=== PATIENT | female | born 1935 | race Caucasian/White ===

== ENCOUNTER → 2020-02-12 18:48 | Outpatient (CLI) | payer MEDICARE, BC, SELFPAY ==
[2020-02-12 19:39] LABS: Alanine Aminotransferase 21 U/L (12-78); Albumin Level 4.8 g/dl (3.5-5.0); Albumin/Globulin Ratio 1.5 (1.1-1.8); Alkaline Phosphatase 87 U/L (38-126); Anion Gap 13.1 mEq/L (5-15); Aspartate Amino Transferase 42 U/L (14-36); Bilirubin,Total 0.6 mg/dl (0.2-1.3); Blood Urea Nitrogen 23 mg/dl (7-17); Calcium 10.3 mg/dl (8.4-10.2); Carbon Dioxide 31 mmol/L (22.0-30.0); Chloride 101 mmol/L (98-107); Estimated Glomerular Filt Rate 47 ml/min (>60); GFR (African American) 57 ML/MIN (>60); Globulin 3.3 g/dL (1.3-3.2); Glucose 115 mg/dl (74-100); Potassium 4.1 mmoL/L (3.5-5.1); Sodium 141 mmol/L (136-145); Total Protein,Serum 8.1 g/dl (6.3-8.2)
[2020-02-12 20:05] LABS: Thyroid Stimulating Hormone 1.13 uIU/mL (0.465-4.68)
== END ==
PROVIDERS: Visit Provider Family Medicine
DX: E03.9 Hypothyroidism, unspecified (principal); I10 Essential (primary) hypertension
CPT/HCPCS: 80053; 84443

== ENCOUNTER → 2021-01-17 18:27 | Outpatient (CLI) | payer MEDICARE, BC, SELFPAY ==
[2021-01-17 18:58] LABS: Basophils % 0.6 % (0.1-2.0); Eosinophils # 0.1 K/mm3 (0.0-0.4); Eosinophils % 0.8 % (0.1-12.0); Hematocrit 43.6 % (37.0-47.0); Hemoglobin 14.3 g/dL (12.2-16.2); Lymphocytes # 2.6 K/mm3 (0.7-4.5); Lymphocytes % 37.7 % (10-50); Mean Corpuscular HGB Conc 32.8 g/dL (31.8-35.4); Mean Corpuscular Hemoglobin 30.2 pg (27.0-31.2); Mean Corpuscular Volume 92.1 fl (81-99); Mean Platelet Volume 9.6 fl (7.4-10.4); Monocytes # 0.6 K/mm3 (0.1-1.0); Monocytes % 8.2 % (1.7-9.3); Neutrophils # 3.7 K/mm3 (1.8-7.8); Neutrophils % 52.7 % (37.0-80.0); Platelet Count 302 K/mm3 (142-424); Red Blood Count 4.74 M/mm3 (4.20-5.40); Red Cell Distribution Width 13.9 % (11.5-17.5)
[2021-01-17 19:46] LABS: Alanine Aminotransferase 18 U/L (12-78); Albumin Level 4.4 g/dl (3.5-5.0); Albumin/Globulin Ratio 1.4 (1.1-1.8); Alkaline Phosphatase 69 U/L (38-126); Anion Gap 15.1 mEq/L (5-15); Aspartate Amino Transferase 36 U/L (14-36); Bilirubin,Total 0.3 mg/dl (0.2-1.3); Blood Urea Nitrogen 22 mg/dl (7-17); Calcium 9.7 mg/dl (8.4-10.2); Carbon Dioxide 29 mmol/L (22.0-30.0); Chloride 100 mmol/L (98-107); Estimated Glomerular Filt Rate 53 ml/min (>60); GFR (African American) 64 ML/MIN (>60); Globulin 3.1 g/dL (1.3-3.2); Glucose 76 mg/dl (74-100); Potassium 4.1 mmoL/L (3.5-5.1); Sodium 140 mmol/L (136-145); Total Protein,Serum 7.5 g/dl (6.3-8.2)
[2021-01-17 20:17] LABS: Thyroid Stimulating Hormone 3.26 uIU/mL (0.465-4.68)
== END ==
PROVIDERS: Visit Provider Family Medicine
DX: I10 Essential (primary) hypertension (principal); E03.9 Hypothyroidism, unspecified
CPT/HCPCS: 80053; 84443; 85025

== ENCOUNTER → 2022-03-13 12:38 | Outpatient (CLI) | payer MEDICARE, BC, SELFPAY ==
[2022-03-13 20:09] LABS: Basophils % 0.7 % (0.1-2.0); Eosinophils # 0.1 K/mm3 (0.0-0.4); Eosinophils % 0.8 % (0.1-12.0); Hematocrit 41.5 % (37.0-47.0); Hemoglobin 13.1 g/dL (12.2-16.2); Lymphocytes # 2.2 K/mm3 (0.7-4.5); Lymphocytes % 34.2 % (10-50); Mean Corpuscular HGB Conc 31.5 g/dL (31.8-35.4); Mean Corpuscular Hemoglobin 28.5 pg (27.0-31.2); Mean Corpuscular Volume 90.6 fl (81-99); Mean Platelet Volume 9.4 fl (7.4-10.4); Monocytes # 0.5 K/mm3 (0.1-1.0); Monocytes % 7.6 % (1.7-9.3); Neutrophils # 3.7 K/mm3 (1.8-7.8); Neutrophils % 56.7 % (37.0-80.0); Platelet Count 302 K/mm3 (142-424); Red Blood Count 4.58 M/mm3 (4.20-5.40); White Blood Count 6.5 K/mm3 (4.8-10.8)
[2022-03-13 20:30] LABS: Alanine Aminotransferase 18 U/L (12-78); Albumin Level 4.4 g/dl (3.5-5.0); Albumin/Globulin Ratio 1.6 (1.1-1.8); Alkaline Phosphatase 96 U/L (38-126); Aspartate Amino Transferase 32 U/L (14-36); Bilirubin,Total 0.4 mg/dl (0.2-1.3); Blood Urea Nitrogen 17 mg/dl (7-17); Calcium 9.7 mg/dl (8.4-10.2); Carbon Dioxide 32 mmol/L (22.0-30.0); Chloride 94 mmol/L (98-107); Chol/HDL Ratio 3.8 (1-3.5); Cholesterol 219 mg/dl (140-200); Estimated Glomerular Filt Rate 68 ml/min (>60); GFR (African American) 82 ML/MIN (>60); Globulin 2.8 g/dL (1.3-3.2); Glucose 83 mg/dl (74-100); HDL Cholesterol 58 mg/dl (40-60); Sodium 140 mmol/L (136-145); Total Protein,Serum 7.2 g/dl (6.3-8.2); Triglycerides 86 mg/dl (30-150); VLDL Cholesterol 17 mg/dL (0-40)
[2022-03-13 20:47] LABS: Direct LDL Cholesterol 124.92 mg/dL (100-129)
[2022-03-13 21:00] LABS: Thyroid Stimulating Hormone 3.08 uIU/mL (0.465-4.68)
== END ==
PROVIDERS: PCP Family Medicine; Visit Provider Family Medicine
DX: E03.9 Hypothyroidism, unspecified (principal); Z23 Encounter for immunization
CPT/HCPCS: 80053; 80061; 84443; 85025

== ENCOUNTER → 2022-08-07 14:29 | Outpatient (CLI) | payer MEDICARE, BC, SELFPAY ==
[2022-08-07 13:37] LABS: Basophils % 0.4 % (0.1-2.0); Eosinophils # 0.1 K/mm3 (0.0-0.4); Eosinophils % 0.8 % (0.1-12.0); Hematocrit 41.7 % (37.0-47.0); Hemoglobin 13.2 g/dL (12.2-16.2); Lymphocytes # 2.5 K/mm3 (0.7-4.5); Lymphocytes % 37.8 % (10-50); Mean Corpuscular HGB Conc 31.7 g/dL (31.8-35.4); Mean Corpuscular Hemoglobin 28.2 pg (27.0-31.2); Mean Corpuscular Volume 89.1 fl (81-99); Mean Platelet Volume 9.1 fl (7.4-10.4); Monocytes # 0.6 K/mm3 (0.1-1.0); Monocytes % 8.7 % (1.7-9.3); Neutrophils # 3.4 K/mm3 (1.8-7.8); Neutrophils % 52.3 % (37.0-80.0); Platelet Count 270 K/mm3 (142-424); Red Blood Count 4.68 M/mm3 (4.20-5.40); Red Cell Distribution Width 13.7 % (11.5-17.5); White Blood Count 6.5 K/mm3 (4.8-10.8)
[2022-08-07 13:42] LABS: Chloride 101 mmol/L (98-107)
[2022-08-07 13:43] LABS: Sodium 138 mmol/L (136-145)
[2022-08-07 13:45] LABS: Alanine Aminotransferase 19 U/L (12-78); Aspartate Amino Transferase 32 U/L (14-36); Blood Urea Nitrogen 19 mg/dl (7-17); Carbon Dioxide 28 mmol/L (22.0-30.0); Estimated Glomerular Filt Rate 59 ml/min (>60); GFR (African American) 72 ML/MIN (>60)
[2022-08-07 13:46] LABS: Albumin Level 4.2 g/dl (3.5-5.0); Albumin/Globulin Ratio 1.6 (1.1-1.8); Alkaline Phosphatase 78 U/L (38-126); Bilirubin,Total 0.7 mg/dl (0.2-1.3); Calcium 9.1 mg/dl (8.4-10.2); Globulin 2.6 g/dL (1.3-3.2); Glucose 93 mg/dl (74-100); Total Protein,Serum 6.8 g/dl (6.3-8.2)
[2022-08-07 14:24] LABS: Thyroid Stimulating Hormone 3.23 uIU/mL (0.465-4.68)
== END ==
PROVIDERS: PCP Family Medicine; Visit Provider Family Medicine
DX: E03.9 Hypothyroidism, unspecified (principal); R06.02 Shortness of breath
CPT/HCPCS: 80053; 84443; 85025

== ENCOUNTER → 2022-08-16 13:25 | Outpatient (CLI) | payer MEDICARE, BC, SELFPAY | PROVIDERS: PCP Family Medicine; Visit Provider Emergency Medicine | DX: R06.02 Shortness of breath (principal) | CPT/HCPCS: 93306 ==

== ENCOUNTER → 2023-03-14 23:40 | Outpatient (CLI) | payer MEDICARE, BC, SELFPAY ==
[2023-03-14 19:07] LABS: Basophils % 0.3 % (0.1-2.0); Eosinophils # 0.1 K/mm3 (0.0-0.4); Eosinophils % 1.5 % (0.1-12.0); Hematocrit 39.8 % (37.0-47.0); Hemoglobin 13.6 g/dL (12.2-16.2); Lymphocytes # 2.7 K/mm3 (0.7-4.5); Lymphocytes % 37.1 % (10-50); Mean Corpuscular HGB Conc 34.2 g/dL (31.8-35.4); Mean Corpuscular Hemoglobin 30.3 pg (27.0-31.2); Mean Corpuscular Volume 88.6 fl (81-99); Mean Platelet Volume 8.8 fl (7.4-10.4); Monocytes # 0.6 K/mm3 (0.1-1.0); Monocytes % 8.7 % (1.7-9.3); Neutrophils # 3.9 K/mm3 (1.8-7.8); Neutrophils % 52.5 % (37.0-80.0); Platelet Count 255 K/mm3 (142-424); White Blood Count 7.3 K/mm3 (4.8-10.8)
[2023-03-14 20:26] LABS: Chloride 99 mmol/L (98-107); Potassium 3.6 mmoL/L (3.5-5.1); Sodium 135 mmol/L (136-145)
[2023-03-14 20:29] LABS: Alanine Aminotransferase 25 U/L (12-78); Albumin Level 4.5 g/dl (3.5-5.0); Albumin/Globulin Ratio 1.6 (1.1-1.8); Anion Gap 13.6 mEq/L (5-15); Aspartate Amino Transferase 41 U/L (14-36); Bilirubin,Total 0.4 mg/dl (0.2-1.3); Blood Urea Nitrogen 16 mg/dl (7-17); Calcium 9.3 mg/dl (8.4-10.2); Carbon Dioxide 26 mmol/L (22.0-30.0); Chol/HDL Ratio 3.4 (1-3.5); Cholesterol 209 mg/dl (140-200); Estimated Glomerular Filt Rate 59 ml/min (>60); GFR (African American) 72 ML/MIN (>60); Globulin 2.8 g/dL (1.3-3.2); Glucose 101 mg/dl (74-100); HDL Cholesterol 61 mg/dl (40-60); Total Protein,Serum 7.3 g/dl (6.3-8.2); Triglycerides 72 mg/dl (30-150); VLDL Cholesterol 14 mg/dL (0-40)
[2023-03-14 20:36] LABS: NT Pro Brain Natriuretic Pep. 300 pg/mL (0-450)
[2023-03-14 20:41] LABS: Direct LDL Cholesterol 113.86 mg/dL (100-129)
[2023-03-14 20:57] LABS: Thyroid Stimulating Hormone 2.14 uIU/mL (0.465-4.68)
[2023-03-14 21:45] LABS: Alkaline Phosphatase 74 U/L (38-126)
== END ==
PROVIDERS: PCP Family Medicine; Visit Provider Family Medicine
DX: R06.02 Shortness of breath (principal); E03.9 Hypothyroidism, unspecified
CPT/HCPCS: 80053; 80061; 83880; 84443; 85025

== ENCOUNTER 2023-11-25 16:13 | Outpatient (CLI) | payer MEDICARE, BC, SELFPAY ==
[2023-11-25 18:36] LABS: Basophils % 0.5 % (0.1-2.0); Eosinophils # 0.1 K/mm3 (0.0-0.4); Eosinophils % 0.8 % (0.1-12.0); Hematocrit 35.8 % (37.0-47.0); Hemoglobin 13.1 g/dL (12.2-16.2); Lymphocytes # 2.3 K/mm3 (0.7-4.5); Lymphocytes % 31.2 % (10-50); Mean Corpuscular HGB Conc 36.7 g/dL (31.8-35.4); Mean Corpuscular Hemoglobin 33.6 pg (27.0-31.2); Mean Corpuscular Volume 91.6 fl (81-99); Mean Platelet Volume 9.8 fl (7.4-10.4); Monocytes # 0.6 K/mm3 (0.1-1.0); Monocytes % 8.1 % (1.7-9.3); Neutrophils # 4.3 K/mm3 (1.8-7.8); Neutrophils % 59.3 % (37.0-80.0); Platelet Count 257 K/mm3 (142-424); Red Cell Distribution Width 14.4 % (11.5-17.5); White Blood Count 7.2 K/mm3 (4.8-10.8)
[2023-11-25 19:15] LABS: Alanine Aminotransferase 23 U/L (12-78); Albumin Level 4.1 g/dl (3.5-5.0); Albumin/Globulin Ratio 1.3 (1.1-1.8); Alkaline Phosphatase 77 U/L (38-126); Aspartate Amino Transferase 37 U/L (14-36); Bilirubin,Total 0.7 mg/dl (0.2-1.3); Blood Urea Nitrogen 25 mg/dl (7-17); Calcium 9.7 mg/dl (8.4-10.2); Carbon Dioxide 32 mmol/L (22.0-30.0); Chloride 101 mmol/L (98-107); Estimated Glomerular Filt Rate 42 ml/min (>60); GFR (African American) 51 ML/MIN (>60); Globulin 3.2 g/dL (1.3-3.2); Glucose 113 mg/dl (74-100); Sodium 140 mmol/L (136-145); Total Protein,Serum 7.3 g/dl (6.3-8.2)
[2023-11-25 19:42] LABS: Thyroid Stimulating Hormone 1.96 uIU/mL (0.465-4.68)
== END 2023-11-25 23:59 | disposition home or self-care (01) ==
LOC: LAB.DROPOF 11-26 16:14
PROVIDERS: PCP Family Medicine; Visit Provider Family Medicine
DX: E03.9 Hypothyroidism, unspecified (principal); I10 Essential (primary) hypertension
CPT/HCPCS: 80053; 84443; 85025

== ENCOUNTER 2025-02-24 12:00 | Outpatient (CLI) | payer MEDICARE, BC, SELFPAY ==
[2025-02-24 18:35] LABS: Hematocrit 37.2 % (37.0-47.0); Hemoglobin 12.0 g/dL (12.2-16.2); Immature Granulocytes % 0.2 %; Mean Corpuscular HGB Conc 32.3 g/dL (31.8-35.4); Mean Corpuscular Hemoglobin 29.0 pg (27.0-31.2); Mean Corpuscular Volume 89.9 fl (81-99); Nucleated Red Blood Cells % 0 %; Platelet Count 248 K/mm3 (142-424); Red Blood Count 4.14 M/mm3 (4.20-5.40); Red Cell Distribution Width-SD 45.1 fL; White Blood Count 6.3 K/mm3 (4.8-10.8)
[2025-02-24 19:30] LABS: Alanine Aminotransferase 24 U/L (12-78); Albumin Level 3.5 g/dl (3.5-5.0); Albumin/Globulin Ratio 0.9 (1.1-1.8); Alkaline Phosphatase 84 U/L (38-126); Anion Gap 10.9 mEq/L (5-15); Aspartate Amino Transferase 37 U/L (14-36); Bilirubin,Total 0.6 mg/dl (0.2-1.3); Blood Urea Nitrogen 30 mg/dl (7-17); Calcium 9.3 mg/dl (8.4-10.2); Carbon Dioxide 29 mmol/L (22.0-30.0); Chloride 101 mmol/L (98-107); Creatinine,Serum 1.40 mg/dl (0.52-1.04); Estimated Glomerular Filt Rate 35 ml/min (>60); GFR (African American) 43 ML/MIN (>60); Globulin 3.8 g/dL (1.3-3.2); Glucose 131 mg/dl (74-100); Potassium 3.9 mmoL/L (3.5-5.1); Sodium 137 mmol/L (136-145); Total Protein,Serum 7.3 g/dl (6.3-8.2)
[2025-02-24 20:00] LABS: Thyroid Stimulating Hormone 3.79 uIU/mL (0.465-4.68)
--- OUTSIDE RECORDS SUMMARY | 2025-02-25 13:54 | XMS_ITS | Clinical Summary ---
Author Organization [facility] Address [address] [place] [address] Phone Care Team Providers Care Veneer Splicer Name Role Phone Angely Redding MA [phone] Conditions or Problems Problem Name Problem Code Onset Date Status Entry Date Provider Comment Standard Description Annotate UNSPECIFIED DISPLACED FRACTURE OF SECOND CERVICAL VERTEBRA, INITIAL ENCOUNTER FOR CLOSED FRACTURE S12.100A (ICD-10-C M) Active Tim Zamora Unspecified displaced fracture of second cervical vertebra, initial encounter for closed fracture Medications Medication Instructions Start Date Stop Date Generic Name [facility] Provider CALCIUM CAPSULE Non-[place] 05/07 CALCIUM CAPS [phone] Tim Zamora D3 + K2 DOTS TABS Non-[place] 05/07 VITAMIN D-VITAMIN K TABS [id number] Tim Zamora HYDROCHLOROTHIAZIDE TABLET Non-[place] 05/07 HYDROCHLOROTHIAZI DE TABS [id number] Tim Zamora OMEPRAZOLE TBEC -[place] 05/07 OMEPRAZOLE TBEC [id number] Tim Zamora LOSARTAN POTASSIUM 100 MG TABS [facility] 05/07 LOSARTAN POTASSIUM [id number] Tim Zamora AMLODIPINE BESYLATE 10 MG TABS [facility]-[place] 05/07 AMLODIPINE BESYLATE [id number] Tim Zamora LEVOXYL 25 MCG TABS [facility]-[place] 05/07 LEVOTHYROXINE SODIUM [id number] Tim Zamora Medications Administered No information available. Allergies, Adverse Reactions, Alerts Allergy Name Reaction Description Start Date Severity Statu s Provider SEASONAL Mild Garrett Zamora Results No information available. Plan of Care Type Date Detail Pending order X-Ray Cervical F lexion/Extension Pending order X-Ray Cervical A P & Lateral Pending order X-Ray Cervical A P & Lateral Pending order Other Orthotic D evice Pending order X-Ray Cervical A P & Lateral Patient education CERVICAL%20FRA CTURE Patient education CERVICAL%20FRA CTURE Patient education CERVICAL%20FRA CTURE Patient education CERVICAL%20FRA CTURE Procedures Code Procedure Name Date Entry Date [facility]-[id number] Flu Shot Previously Received [id number] Pneumonia Vaccine Previously Received 20 17/06/10 [id number] Medications Documented [id number] Flu Shot Previously Received [id number] Pneumonia Vaccine Previously Received 20 17/05/10 [id number] Medications Documented [id number] Flu Shot Previously Received [id number] Pneumonia Vaccine Previously Received 20 15/04/14 [id number] Medications Documented [id number] Flu Shot Previously Received [id number] Medications Documented [id number] Pneumonia Vaccine Previously Received 20 16/03/09 Vital Signs Date Name Value Unit Description BMI (Body Mass Index) 24.03 kg/m2 Bod y Mass Index (Ratio) Height 64 [in_us] height E&M Weight Measured 140 [lb_av] weight E& M Weight Measured 140 [lb_av] weight E& M BP Diastolic 78 mm[Hg] blood pressu re, diastolic BP Systolic 141 mm[Hg] blood pressur e, systolic Heart Rate 86 /min pulse rate Immunizations No information available. Advance Directives No information available.
--- OUTSIDE RECORDS SUMMARY | 2025-02-25 13:54 | XMS_ITS | Clinical Summary ---
Author Organization [facility] Address [address] [place] [id number] Care Team Providers Care Director Corporate Compliance Name Role Phone Manfred Diaz MD Primary Care Provider [phone] Shimon Lee MD Unavailable [phone] Allergies No known active allergies Medications MULTIVITAMINS W-MINERALS/LUT (CENTRUM SILVER PO) Take by mouth daily. Active valsartan-hydroch lorothiazide (DIOVAN-HCT) 160-12.5 mg PO Tab Take 1 Tab by mouth daily. Active amlodipine (NORVASC) 10 mg PO tablet Take 10 mg by mouth daily. Active estrogens conjugated, synthetic, (CENESTIN) 0.3 mg PO Tab Take by mouth nightly bedtime. Active CALCIUM CARBONATE/VITAMIN D3 (CALCIUM 600 + D PO) Take by mouth daily. Active levothyroxine (SYNTHROID) 25 mcg PO tablet Take 25 mcg by mouth every morning (before breakfast). Active OTHER - SEE EPIC ADMIN INSTRUCTIONS Allergy shots weekly Active ibuprofen (MOTRIN) 600 mg PO tablet Take 1 Tab by mouth every 6 hours as needed for Pain. 60 Tab 1 9 Active docusate sodium (COLACE) 100 mg PO capsule Take 1 Cap by mouth 3 times daily as needed. 60 Cap 2 9 Active estrogens, conjugated, (PREMARIN) 0.625 mg/gram VA Crea Insert 1 g into vagina daily. 2 times weekly Active Family History Medical History Relation Name Comments Anesthesia Complications Neg Hx Heart Problems Neg Hx Social History Tobacco Use Types Packs/Day Years Used Date Smoking Tobacco: Never Alcohol Use Standard Drinks/Week Comments No 0 (1 standard drink = 0.6 oz pur e alcohol) Comments No Sex and Gender Information Value Date Recorded Sex Assigned at Not on file Legal Sex Female 6:40 PM EST Gender Identity Not on file Sexual Orientation Not on file Occupation Industry Job Start Date Job End Date Retired Not on file Not on file Not on file Last Filed Vital Signs Vital Sign Reading Time Taken Comments Blood Pressure 119/70 04/14/2009 8:40 AM EST Pulse 73 04/14/2009 8:40 AM EST Temperature 36.6 C (97.8 F) 06/27/2011 12:04 PM EST Respiratory Rate 18 04/14/2009 8:40 AM EST Oxygen Saturation 95% 04/14/2009 8:40 AM EST Inhaled Oxygen Concentration - - Weight 72.6 kg (160 lb) 06/27/2011 12:04 PM EST Height 163.8 cm (5' 4.5 ) 06/27/2011 12:04 PM ES T Body Mass Index 27.04 06/27/2011 12:04 PM EST Plan of Treatment Health Maintenance Due Date Last Done Comments Lipid Screening 07/18/1953 Tetanus Vaccination (Every 10 Years) 07/18/1953 Pneumococcal Vaccine: 50+ Years (1 of 1 - PCV) 986 Zoster-RZV(Shingrix) (1 of 2) 07/18/1985 Fall Risk Assessment 07/18/2000 Osteoporosis Screening 07/18/2000 RSV Vaccines (1 - 1-dose 75+ series) 07/18/2010 Advance Care Planning 04/29/2024 Depression Screening 04/29/2024 COVID-19 Vaccine ( season) 2024 Influenza Vaccination (#1) 2024 Medical Devices Implanted Type Area Game Bird Farmer Device Identifier Shelf Expiration Date Model / Serial / Lot Graft Mesh Sheet Pp 3x6in - S1 Implanted:Qty: 1 on 04/13/2009 at [facility] 8 OR N/A: Vagina * [employer] [id number] / / [id number] Tvt Secur 1 Pack - S1 Implanted:Qty: 1 on 04/13/2009 at [facility] 8 OR N/A: Bladder * [employer] [id number] / / [id number] Insurance MEDICARE MEDICARE PART A [facility] [address] Care Teams Director Corporate Compliance Relationship Specialty Start Date End Date Manfred Diaz MD PCP - General 04/04/09 Shimon Lee MD [address] [place] [address] [place] [id number] Female Pelvic Medicine and Reconstructive Surgery 05/06/22
--- OUTSIDE RECORDS SUMMARY | 2025-02-25 13:54 | XMS_ITS | Clinical Summary ---
Author Organization [facility] Address [address] [place] [address] Care Team Providers Care Wardrobe Coordinator Name Role Phone Daryl Romero MD Primary Care Provider [phone] Social History Tobacco Use Types Packs/Day Years Used Date Smoking Tobacco: Never Assessed Comments Unknown Sex and Gender Information Value Date Recorded Sex Assigned at Not on file Legal Sex Female 7:02 PM EDT Gender Identity Not on file Sexual Orientation Not on file Plan of Treatment Health Maintenance Due Date Last Done Comments [facility]-Bone Density Scan 1935 [facility]-Depression Screening 1935 [facility]-Infant/Child/Adol SDOH Screenings 1935 [facility]- SDOH Screenings 07/18/1953 [facility]-Adult SDOH Screenings 07/18/1953 [facility]-Pneumococcal Vaccine: 50+ Years (1 of 1 - PCV) 07/18/1985 [facility]-RSV Vaccine: 60+ Years or (1 - 1-dose 75+ series) 07/18/2010 [facility]-Zoster Vaccines (2 of 3) 01/25/2014 11/30/2013 [id number] Vaccine (4 - 2024- season) 2024 05/17/2021, 07/21/2020, 06/21/2020 [facility]-Influenza Vaccine (#1) 12/28/202402/19, 03/12/2012 [facility]-DTaP,Tdap,and Td Vaccines (2 - Td or Tdap) 09/26/2026 09/26/2016 HPV Vaccines Aged Out No longer eligi ble based on patient's age to complete this topic [facility]-HIB Vaccines Aged Out No longer e ligible based on patient's age to complete this topic [facility]-Hepatitis A Vaccines Aged Out No longer eligible based on patient's age to complete this topic [facility]-IPV Vaccines Aged Out No longer e ligible based on patient's age to complete this topic [facility]-Rotavirus Vaccines Aged Out No lo nger eligible based on patient's age to complete this topic Insurance MEDICARE Member Subscriber Plan / Payer (Ef fective 2000-Present) Name:Ludmila Herbert Member ID:[id number] Relation to Subscriber:Self Name:Ludmila Herbert Subscriber ID:[id number] Payer ID:[id number] Group ID:Not on file Type:Medicare Address: [address] Care Teams Wardrobe Coordinator Relationship Specialty Start Date End Date Daryl Romero MD [address] [place] [address] PCP - General 08/16/22
== END 2025-02-24 23:59 | disposition home or self-care (01) ==
LOC: LAB.DROPOF 02-25 13:45
PROVIDERS: PCP Family Medicine; Visit Provider Family Medicine
DX: E03.9 Hypothyroidism, unspecified (principal); I10 Essential (primary) hypertension
CPT/HCPCS: 80053; 84443; 85025